=== PATIENT | female | born 1990 | race Caucasian/White ===

== ENCOUNTER 2016-05-27 13:41 | Emergency (ER) | payer MEDICAID ==
[~2016-05-27] VITALS: Ht 165.1 cm; Wt 59.1 kg
[~2016-05-27 13:41] MED LIST: CARAFATE 1GM1 G PO; NEXIUM 20MG20 MG PO; NORCO 325 MG-51 TAB PO; NORCO 325 MG-7.1 TAB PO; PHENERGAN 25 TA25 MG PO; ULTRAM 50MG TAB50 MG PO; ZOFRAN 4MG T4 MG/TAB PO; ZOFRAN ODT4 MG PO; ZOFRAN8 MG PO
[2016-05-27 14:06] VITALS: BP 112/81; TEMP 98
[2016-05-27 16:01] LABS: PH 6 (5-8); SQUAMOUS EPITHELIAL 0-2 /hpf; URINE APPEARANCE Clear; URINE BACTERIA None Seen /hpf; URINE BILIRUBIN Negative (NEGATIVE); URINE BLOOD 1+ (NEGATIVE); URINE COLOR Yellow; URINE GLUCOSE Negative (NEGATIVE); URINE KETONE Negative (NEGATIVE); URINE RBC 0-2 /hpf; URINE UROBILINOGEN Negative (NEGATIVE); URINE WBC 0-2 /hpf
[2016-05-27] MEDS ORDERED: NORCO 325 MG-7.1 TAB PO (16:47)
[2016-05-27 16:59] VITALS: PULSE 60
== END 2016-05-27 17:01 | disposition home or self-care (01) ==
LOC: COL.ER 13:41
PROVIDERS: Nurse Practitioner
DX: S20.211A Contusion of right front wall of thorax, initial encounter (principal); W18.2XXA Fall in (into) shower or empty bathtub, initial encounter; Y93.F1 Activity, caregiving, bathing; Y92.002 Bathroom of unspecified non-institutional (private) residence as the place of occurrence of the external cause

== ENCOUNTER 2019-12-03 20:52 | Emergency (ER) | payer MEDICAID ==
[~2019-12-03] VITALS: Ht 165.1 cm; Wt 72.7 kg
[2019-12-03 20:56] VITALS: BP 122/88; TEMP 97.6
[2019-12-03 21:12] LABS: COLLECTION METHOD CLEAN CATCH
[2019-12-03 21:31] LABS: MUCOUS Present /lpf; PH 5 (5-8); SQUAMOUS EPITHELIAL 0-2 /hpf; URINE APPEARANCE Turbid; URINE BACTERIA Moderate /hpf; URINE BILIRUBIN Negative (NEGATIVE); URINE BLOOD 3+ (NEGATIVE); URINE COLOR Amber; URINE GLUCOSE Negative (NEGATIVE); URINE KETONE 1+ (NEGATIVE); URINE LEUKOCYTE ESTERASE 2+ (NEGATIVE); URINE NITRATE Negative (NEGATIVE); URINE PROTEIN(semi-quant) 2+ (NEGATIVE); URINE RBC >50 /hpf
[2019-12-03] MEDS ORDERED: PYRIDIUM200 M1 PO (21:41)
[2019-12-03] MEDS ORDERED: CEPHALEXIN500 M1 PO (21:41)
[2019-12-03 21:59] VITALS: PULSE 108
== END 2019-12-03 22:00 | disposition home or self-care (01) ==
LOC: COL.ER 20:52
PROVIDERS: Emergency Medicine
DX: N10 Acute pyelonephritis (principal)
CPT/HCPCS: J0696